=== PATIENT | female | born 1945 | race Caucasian/White ===

== ENCOUNTER → 2018-06-14 11:57 | Outpatient (CLI) | payer MEDICARE, OTHER, SELFPAY ==
--- NOTE | 2018-06-14 | DI.CT.S_ITS ---
PROCEDURE: CT ABDOMEN PELVIS W CON INDICATIONS: ABDOMINAL PAIN TECHNIQUE: After the administration of oral and intravenous contrast, 5 mm thick sections acquired from the diaphragms to the symphysis. 5 mm thick coronal and sagittal reformats were performed. For radiation dose reduction, the following was used: automated exposure control, adjustment of mA and/or kV according to patient size. COMPARISON: None. FINDINGS: Image quality: Excellent. ABDOMEN: Lung bases: Lung bases are clear. Heart size is normal, considering the situs inversus totalis, with the ventricular apex directed anterolaterally towards the right. Solid organs: Liver is normal in size and enhancement and demonstrate situs inversus totalis. Gallbladder is not seen and the patient did report prior cholecystectomy and appendectomy. Note is made of several simple hepatic cysts and no biliary distention. Biliary system is non-dilated. Pancreas enhances normally. Spleen is normal in size and enhancement. No adrenal nodules. Kidneys are normal in size and enhancement, without hydronephrosis, but there is extrarenal pelvis morphology at the kidneys bilaterally, left somewhat more prominent than that on the right. Peritoneum and bowel: Stomach, small bowel, and colon loops are normal in caliber and wall thickness. No free fluid or air. Nodes and vessels: No retroperitoneal or mesenteric adenopathy. Aorta and inferior vena cava are normal in caliber. Miscellaneous: No ventral hernias. PELVIS: Genitourinary: Bladder wall thickness is normal. The uterus can be seen to be somewhat lobulated and to contain moderate uterine fibroids, several of which contain dystrophic calcifications. Miscellaneous: No inguinal hernias or adenopathy. Bones: No suspicious bony lesions. No vertebral body compression fractures. IMPRESSION: 1. A definite source of acute abdominal pain is not seen. 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 2. Scattered hepatic cysts present, no biliary distention seen. The patient reported prior cholecystectomy, and the gallbladder is not found. No metallic surgical clips are seen at the gallbladder fossa. 3. The uterus is somewhat lobulated in its contour, and contains what appears to be multiple small and moderate sized uterine fibroids several of which contain dystrophic calcifications. No acute disease over the pelvis is found. Dictated by: Rashaad Ruiz M.D. on 06/14/2018 at 16:09 Approved by: Rashaad Ruiz M.D. on 06/14/2018 at 16:13
== END ==
PROVIDERS: Visit Provider Family Medicine
DX: R10.9 Unspecified abdominal pain (principal); D25.9 Leiomyoma of uterus, unspecified; K76.89 Other specified diseases of liver; Z90.49 Acquired absence of other specified parts of digestive tract
CPT/HCPCS: 74177; Q9967

== ENCOUNTER → 2018-08-12 11:55 | Outpatient (CLI) | payer MEDICARE, OTHER, SELFPAY ==
--- NOTE | 2018-08-12 11:59 | DI.RAD.S_ITS ---
PROCEDURE: XR ANKLE RT MIN 3V INDICATIONS: 72 y/o F w/ worsening BL R ankle pain 2/2 injury 10-days ago TECHNIQUE: 3 views of the ankle were acquired. COMPARISON: None. FINDINGS: Bones: Acute oblique fracture involving distal fibular shaft is seen. No significant displacement. No other fracture or dislocation. Ankle mortise is normally aligned. No suspicious bony lesions. Small plantar calcaneal enthesophyte is seen. Soft tissues: No tibiotalar joint effusion. Achilles tendon appears normal. Soft tissue swelling over lateral malleolus is noted. IMPRESSION: Acute nondisplaced oblique fracture involving distal fibular shaft. Dictated by: Ammon Ruiz M.D. on 08/12/2018 at 12:17 Approved by: Ammon Ruiz M.D. on 08/12/2018 at 12:19
--- NOTE | 2018-08-12 11:59 | DI.RAD.S_ITS ---
PROCEDURE: XR TIBIA FUBULA RT 2V INDICATIONS: 72 y/o F w/ worsening BL R ankle pain 2/2 injury 10-days ago TECHNIQUE: 2 views of the tibia and fibula were acquired. COMPARISON: None. FINDINGS: Bones: Nondisplaced fracture involving distal fibular shaft is noted better seen on ankle radiograph. No proximal to mid fibular shaft fracture. No dislocation. No suspicious bony lesions. Soft tissues: No suspicious soft tissue calcifications or masses. IMPRESSION: Nondisplaced distal fibular shaft fracture. No proximal to mid tibial or fibular shaft fracture. Dictated by: Ammon Ruiz M.D. on 08/12/2018 at 12:19 Approved by: Ammon Ruiz M.D. on 08/12/2018 at 12:19
== END ==
PROVIDERS: Visit Provider Physician Assistant
DX: S82.434A Nondisplaced oblique fracture of shaft of right fibula, initial encounter for closed fracture (principal); M25.571 Pain in right ankle and joints of right foot
CPT/HCPCS: 73590; 73610

== ENCOUNTER → 2020-01-10 08:58 | Outpatient (CLI) | payer MEDICARE, OTHER, SELFPAY ==
[2020-01-10 09:28] LABS: Alanine Aminotransferase 20 IU/L (<35); Albumin 4.1 g/dL (3.5-5.0); Albumin Globulin Ratio 1.4 (1.0-2.8); Alkaline Phosphatase 63 U/L (38-126); Aspartate Aminotransferase 29 IU/L (14-36); BUN Creatinine Ratio 30.2 (6-22); Bilirubin Total 0.5 mg/dL (0.2-1.3); Blood Urea Nitrogen 26 mg/dL (7-17); Carbon Dioxide 29 mmol/L (22-32); Chloride 106 mmol/L (98-107); Estimated Glomerular Filt Rate > 60.0 mL/min (>60); Glucose 83 mg/dL (80-110); HEMOLYSIS < 15 (0-50); Sodium 141 mmol/L (137-145); Total Protein 7.1 g/dL (6.3-8.2)
--- NOTE | 2020-01-10 09:34 | DI.CT.S_ITS ---
PROCEDURE: CT ABDOMEN PELVIS W CON INDICATIONS: Diverticulitis of intestine, Lower abdominal pain. Sinus inversus TECHNIQUE: After the administration of oral and intravenous contrast, 5 mm thick sections acquired from the diaphragms to the symphysis. 5 mm thick coronal and sagittal reformats were performed. For radiation dose reduction, the following was used: automated exposure control, adjustment of mA and/or kV according to patient size. COMPARISON: [facility], CT, CT ABDOMEN PELVIS W CON, 06/14/2018, 13:15. FINDINGS: Image quality: Excellent. ABDOMEN: Lung bases: Lung bases are clear. Heart size is normal. 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 Solid organs: Liver is normal in size. Numerous hepatic cysts are again seen, unchanged in size and appearance from previous study. Gallbladder is not visualized. Biliary system is non-dilated. Pancreas enhances normally. Spleen is normal in size and enhancement. No adrenal nodules. Kidneys are normal in size and enhancement, without hydronephrosis. Left extrarenal pelvis is seen. Visualized bilateral ureters are within normal limits. Peritoneum and bowel: Stomach, small bowel, and colon loops are normal in caliber and wall thickness. No free fluid or air. Mild colonic diverticulosis is seen, no CT evidence of acute diverticulitis. No evidence of acute appendicitis. Nodes and vessels: No retroperitoneal or mesenteric adenopathy. Aorta and inferior vena cava are normal in caliber. Miscellaneous: No ventral hernias. PELVIS: Genitourinary: Bladder wall thickness is normal. Miscellaneous: Small bilateral inguinal hernias are seen containing fat only. No inguinal lymphadenopathy. Bulky appearing uterus with multiple calcified uterine fibroids are again seen, unchanged from prior study. No gross abnormality is seen in bilateral adnexa. Bones: No suspicious bony lesions. No vertebral body compression fractures. IMPRESSION: 1. No acute inflammatory process within abdomen or pelvis. No free fluid or free air. Mild colonic diverticulosis with no CT evidence of acute diverticulitis. 2. 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 3. Numerous hepatic cysts, unchanged from prior study. Prior cholecystectomy. 4. Bulky appearing uterus with multiple calcified uterine fibroids. Dictated by: Ammon Ruiz M.D. on 01/10/2020 at 10:31 Approved by: Ammon Ruiz M.D. on 01/10/2020 at 13:33
== END ==
PROVIDERS: Referring Provider Family Medicine; Visit Provider Family Medicine
DX: K57.92 Diverticulitis of intestine, part unspecified, without perforation or abscess without bleeding (principal); Q89.3 Situs inversus; R10.30 Lower abdominal pain, unspecified; K76.89 Other specified diseases of liver; D25.9 Leiomyoma of uterus, unspecified
CPT/HCPCS: 36415; 74177; 80053; Q9967

== ENCOUNTER 2020-11-11 23:10 | Emergency (ER) | payer MEDICARE, OTHER, SELFPAY ==
[2020-11-11 23:20] VITALS: BP 196/87; PULSE 68; RESP 20; TEMP 36.6; O2SAT 100; BMI 29.4
[2020-11-11 23:31] VITALS: PULSE 57; O2SAT 100
--- NOTE | 2020-11-11 23:40 | DI.RAD.S_ITS ---
PROCEDURE: XR CHEST 1V INDICATIONS: chest pain TECHNIQUE: One view of the chest was acquired. COMPARISON: None. FINDINGS: Surgical changes and devices: None. Lungs and pleura: Lungs are clear. No pleural effusions or pneumothorax. Mediastinum: Mediastinal contours appear normal. Heart size is normal. Right-sided heart is noted. Bones and chest wall: No suspicious bony lesions. Overlying soft tissues appear unremarkable. IMPRESSION: 1. No acute cardiopulmonary disease process. 2. Situs inversus. Dictated by: Brooke Velásquez MD, PhD on 11/12/2020 at 8:32 Approved by: Brooke Velásquez MD, PhD on 11/12/2020 at 8:34
[2020-11-12] VITALS (8 sets, daily range): BP systolic 174; BP diastolic 74; PULSE 49–60; RESP 15–38; O2SAT 98–100
[2020-11-12 00:05] LABS: Add Manual Diff / Slide Review NO; Basophils Absolute Auto 100 /uL (0-100); Eosinophils Absolute Auto 0 /uL (0-450); Eosinophils Percent Auto 0.3 % (2-4); Hematocrit 41.6 % (36-46); Hemoglobin 13.8 g/dL (12.0-16.0); Lymphocytes Absolute Auto 1300 /uL (1100-4500); Lymphocytes Percent Auto 20.3 % (25-40); Mean Corpuscular HGB Conc 33.3 % (30-36); Mean Corpuscular Hemoglobin 30.8 PG (26-34); Mean Corpuscular Volume 92.6 fL (80-100); Monocytes Absolute Auto 400 /uL (0-900); Monocytes Percent Auto 6.7 % (3-14); Neutrophils Absolute Auto 4500 /uL (1500-7000); Neutrophils Percent Auto 71.7 % (50-75); Platelet Count 175 X10^3/uL (150-400); Red Blood Cell Count 4.49 X10^6/uL (4.0-5.2); Red Cell Distribution Width 13.7 % (11.6-14.8); White Blood Cell Count 6.3 X10^3/uL (4.5-11.0)
--- NOTE | 2020-11-12 00:06 | ED.GENADULT ---
HPI - General Adult General Chief complaint: Syncope Stated complaint: Passed out earlier. Sent by [employer] EMT Time Seen by Provider: 11/11/20 23:30 Source: patient Mode of arrival: Ambulatory Limitations: no limitations History of Present Illness HPI narrative: Patient is a 74-year-old female who arrived to the emergency department for evaluation of an event that occurred earlier this evening. States she was over at a friend's house. She states she had been standing for a little over 1 hour when she suddenly became very lightheaded. She was not having chest pain or shortness of breath or headaches at the time. Did not feel like her heart was beating faster being slow. She became very flushed. She states that she did have to sit down on the ground. She had no loss of consciousness. Unsure as to how long the symptoms lasted but she did start to feel better after she sat down. She was able to drink some water. Had a little bit nausea with this. Her came to pick her up. She went home. She was able to walk around. She felt much better but was not back 100% to her normal state health. She was able to eat some food. Because things were not improving she decided to come to the emergency department for evaluation. In route here to the emergency department she did have an episode where she was having some chest discomfort. States that it lasted approximately 30 minutes and then completely resolved. She initially thought this was just anxiety related to the situation. Related Data Home Medications Medication Instructions Recorded Confirmed enalapril maleate PO 08/12/18 08/12/18 simvastatin PO 08/12/18 08/12/18 Allergies Allergy/AdvReac Type Severity Reaction Status Date / Time No Known Allergies Allergy Uncoded 11/08/17 12:49 Review of Systems Constitutional Constitutional: Denies fatigue, Denies fever(s) and Denies headache(s) Eyes Eyes: Denies change in vision ENT Ears, Nose, Mouth, and Throat: Denies vertigo, Reports dizziness, Denies headache(s), Reports disequilibrium and Denies sore throat Cardiovascular Cardiovascular: Reports chest pain, Denies syncope, Denies irregular heart rhythm, Reports lightheadedness and Denies dyspnea Respiratory Respiratory: Denies cough and Denies dyspnea Gastrointestinal Gastrointestinal: Denies abdominal pain, Reports diarrhea, Reports nausea and Denies vomiting Genitourinary Genitourinary: Denies dysuria Genitourinary: Denies dysuria Musculoskeletal Musculoskeletal: Denies arthralgias, Denies myalgias and Reports tingling Integumentary/Breasts Skin/Breast: Denies lesions and Denies rash Neurologic Neurologic: Denies abnormal speech, Denies behavioral changes, Denies confusion, Denies vertigo, Reports dizziness, Denies syncope, Denies headache(s), Denies localized weakness, Denies memory loss, Reports tingling and Reports disequilibrium Psychiatric Psychiatric: Denies behavioral changes, Denies confusion and Denies memory loss Endocrine Endocrine: Denies fatigue Hematologic/Lymphatic On Anticoagulants: No Allergic/Immunologic Allergic/Immunologic: Denies urticaria Patient History Medical History (Updated 11/12/20 @ 06:51 by Syed Sharp DO) High cholesterol Hypertension Situs inversus totalis Social History Smoking Status: Former smoker Smoking Status: Former smoker alcohol intake frequency: holidays/special occasions only Substance Use Type: does not use Exam Initial Vital Signs Initial Vital Signs: Vital Signs Temperature 97.9 F 11/11/20 23:20 Pulse Rate 68 11/11/20 23:20 Respiratory Rate 20 11/11/20 23:20 Blood Pressure 196/87 H 11/11/20 23:20 Pulse Oximetry 100 11/11/20 23:20 Const General: cooperative, healthy appearing, comfortable, well developed and well groomed Limitations: mental status not altered [facility] Head: normal to inspection and normocephalic Eyes General: appearance normal, both eyes and all related structures Resp Effort & Inspection: normal respiratory effort Auscultation: clear to auscultation bilaterally Cardio Rate: bradycardic Rhythm: regular rhythm Pulses: radial pulses present GI Inspection: non-distended Palpation: soft, No firm and No tender Skin Lesions: no lesions Rashes: no rashes Neuro General: patient alert, patient awake and patient oriented x3 Cognition: normal cognition Speech: speech normal Gait: normal gait Extrem General: normal to inspection, capillary refill normal and No edema Psych Appearance: grossly normal and well kempt Scores [employer]ier coma scale eye opening: Spontaneous Navin coma scale verbal response: Orientated Navin coma scale motor response: Obey commands Soldier coma scale total score: 15 HEART Score Heart Score history: Slightly Suspicious Heart Score EKG: Non-Specific repolarization disturbance Heart Score Age: > or = 65 years old Heart Score risk factors: 1-2 risk factors Heart Score troponin: < or = to normal limit Heart Score Total: 4 Course Orders Ordered: ED Orders 11/11/20 23:29 EKG-12 Lead Stat 11/11/20 23:40 XR chest 1V Stat 11/11/20 23:44 Complete Blood Count AUTO DIFF Stat Comprehensive Metabolic Panel Stat Lipase Stat Troponin & CK Cardiac Panel Stat 11/12/20 01:50 Troponin & CK Cardiac Panel Stat Discontinued Medications Sodium Chloride (Normal Saline 0.9%) 1,000 mls @ 1,000 mls/hr IV BOLUS ONE Stop: 11/12/20 00:29 Last Infusion: 11/12/20 02:46 Dose: 0 mls/hr Documented by: Admin: 11/12/20 00:23 Dose: 1,000 mls/hr Documented by: ISHAN Vital Signs Vital signs: Vital Signs - 8 hr 11/11/20 23:20 11/11/20 23:31 11/12/20 00:00 Temperature 97.9 F Pulse Rate 68 57 L 51 L Respiratory Rate 20 29 H Blood Pressure 196/87 H Pulse Oximetry 100 100 99 11/12/20 00:30 11/12/20 01:00 11/12/20 01:30 Temperature Pulse Rate 50 L 49 L 60 Respiratory Rate 25 H 15 34 H Blood Pressure Pulse Oximetry 99 98 99 11/12/20 02:00 11/12/20 02:30 11/12/20 02:51 Temperature Pulse Rate 53 L 56 L 58 L Respiratory Rate 25 H 35 H 38 H Blood Pressure 174/74 H Pulse Oximetry 100 99 11/12/20 02:55 Temperature Pulse Rate 56 L Respiratory Rate 20 Blood Pressure 174/74 H Pulse Oximetry 99 Medical Decision Making Medical Records Medical records reviewed: Yes I reviewed the patient's medical records. Lab Data Lab results reviewed: Yes I reviewed the patient's lab results. Result diagrams: 11/11/20 23:44 11/11/20 23:44 Labs: Lab Results 11/11/20 11/11/20 11/12/20 Range/Units 23:44 23:44 01:50 WBC 6.3 (4.5-11.0) X10^3/uL RBC 4.49 (4.0-5.2) X10^6/uL Hgb 13.8 (12.0-16.0) g/dL Hct 41.6 (36-46) % MCV 92.6 (80-100) fL MCH 30.8 (26-34) PG MCHC 33.3 (30-36) % RDW 13.7 (11.6-14.8) % Plt Count 175 (150-400) X10^3/uL Neut % (Auto) 71.7 (50-75) % Lymph % (Auto) 20.3 L (25-40) % Bucks % (Auto) 6.7 (3-14) % Eos % (Auto) 0.3 L (2-4) % Baso % (Auto) 1.0 (0-2) % Neut # (Auto) 4500 (1667-9611) /uL Lymph # (Auto) 1300 (6305-1191) /uL Bucks # (Auto) 400 (0-900) /uL Eos # (Auto) 0 (0-450) /uL Baso # (Auto) 100 (0-100) /uL Sodium 141 (137-145) mmol/L Potassium 4.3 (3.4-5.1) mmol/L Chloride 106 (98-107) mmol/L Carbon Dioxide 29 (22-32) mmol/L BUN 22 H (7-17) mg/dL Creatinine 0.86 (0.52-1.04) mg/dL Estimated GFR > 60.0 (>60) mL/min BUN/Creatinine Ratio 25.6 H (6-22) Glucose 111 H (80-110) mg/dL Calcium 10.0 (8.4-10.2) mg/dL Total Bilirubin 0.3 (0.2-1.3) mg/dL AST 33 (14-36) IU/L ALT 22 (<35) IU/L Alkaline Phosphatase 76 (38-126) U/L Total Creatine Kinase 81 75 (30-135) U/L CK-MB (CK-2) TNP TNP CK-MB (CK-2) Rel Index TNP TNP Troponin I < 0.012 < 0.012 (0.01-0.034) ng/mL Total Protein 7.0 (6.3-8.2) g/dL Albumin 4.2 (3.5-5.0) g/dL Globulin 2.8 (1.7-4.1) g/dL Albumin/Globulin Ratio 1.5 (1.0-2.8) Lipase 214 (23-300) U/L Imaging Data Chest x-ray: Radiologist's Impression: No acute findings ECG Data Attestation: I personally reviewed and interpreted this ECG as follows: Prior ECG tracings: available for review Interpretation: Sinus bradycardia Ventricular rate of 54 First-degree AV block peer interval 226 milliseconds LVH Inverted T-waves in lead 1 to aVL AVF V1 V3 V4 V5 V6 Comparison EKG dated 15 November 2018 Has very similar parents to today's EKG however today's has inverted T-waves in 1 in lead to and aVL MDM Narrative Medical decision making narrative: Here in the emergency department patient is asymptomatic. She has a normal neurologic exam. Low suspicion for CVA/TIA given her history and physical exam. Her electrolytes are unremarkable. Her pre syncope that she experienced earlier today did not sound like a seizure activity. She was not having any chest pain or shortness of breath or palpitations at that time. We did discuss the possibility of an arrhythmia however her EKG here shows no signs of arrhythmia and she is a unremarkable QTC. We discussed other etiology to include dehydration and also vasovagal which I suspect was the cause of her symptoms. The 2nd issue that brought her in was this 30 minutes of chest discomfort and route here to the emergency department. The patient thought that it was related to the anxiety/stress of the event. I was able to obtain records from a cardiology visit that she had approximately 1 year ago. Last year she had 2 separate stress test both of which I was able to see the results of and they were all recorded as unremarkable. She was told by the cloth layer after the 2nd stress test that she needed no further workup of her heart. Her troponins today are negative x2. Patient does have Situs inversus. Her EKG does have diffuse T-wave inversions however it does appear very similar to prior EKGs except for the 1 today does have inversions in 1 to in aVL which appear to be new. I had a long discussion with her regarding her symptoms. We did discuss her risks for having coronary artery disease. We did discuss her to prior stress test and that these were reassuring however they were almost 1 year ago. We did discuss the new findings of her EKG today. Discussed the risks and benefits of being admitted to the hospital verses following up as an outpatient. After this discussion with her at bedside the decision was made for her to stay for 2nd troponin and then be discharged home and follow-up with her primary doctor. She was given return precautions stated that if she had any return of the symptoms that she need to return to the emergency department. She expressed understanding and agreement. Discharge Plan Departure Patient Disposition: Home Clinical Impression: Pre-syncope, Atypical chest pain Instructions: Fainting, DI for Atypical Chest Pain Activity Restrictions/Additional Instructions: Continue all of your medications as directed. I highly recommend you contact your primary provider for a follow-up to discuss further workup to include a stress test. Return to the emergency department for any new or worsening symptoms Prescriptions: No Action simvastatin PO RF: 0 enalapril maleate PO RF: 0
[2020-11-12] MEDS: SODIUM CHLORIDE 0.9% 1,000 ML 1000 ML IV (00:23)
[2020-11-12 00:28] LABS: Alanine Aminotransferase 22 IU/L (<35); Albumin 4.2 g/dL (3.5-5.0); Albumin Globulin Ratio 1.5 (1.0-2.8); Alkaline Phosphatase 76 U/L (38-126); Aspartate Aminotransferase 33 IU/L (14-36); BUN Creatinine Ratio 25.6 (6-22); Bilirubin Total 0.3 mg/dL (0.2-1.3); Blood Urea Nitrogen 22 mg/dL (7-17); Carbon Dioxide 29 mmol/L (22-32); Chloride 106 mmol/L (98-107); Creatine Kinase 81 U/L (30-135); Estimated Glomerular Filt Rate > 60.0 mL/min (>60); Globulin 2.8 g/dL (1.7-4.1); Glucose 111 mg/dL (80-110); HEMOLYSIS < 15 (0-50); Lipase 214 U/L (23-300); Potassium 4.3 mmol/L (3.4-5.1); Sodium 141 mmol/L (137-145)
[2020-11-12 00:39] LABS: Troponin I < 0.012 ng/mL (0.01-0.034)
[2020-11-12 02:13] LABS: Creatine Kinase 75 U/L (30-135)
[2020-11-12 02:25] LABS: Troponin I < 0.012 ng/mL (0.01-0.034)
== END 2020-11-12 03:10 | disposition home or self-care (01) ==
PROVIDERS: Emergency Provider Emergency Medicine
DX: R55 Syncope and collapse (principal); R07.89 Other chest pain; R00.1 Bradycardia, unspecified
CPT/HCPCS: 36415; 71045; 80053; 82550; 82553; 83690; 84484; 85025; 93005; 93010; 96360; 96361; 99284

== ENCOUNTER → 2022-08-18 10:02 | Outpatient (CLI) | payer MEDICARE, OTHER, SELFPAY ==
[2022-08-18 20:22] LABS: Appearance Urine UA CLEAR; Bilirubin Urine UA NEGATIVE (NEGATIVE); Color Urine UA YELLOW; Glucose Urine UA NEGATIVE (Negative); Ketones Urine UA NEGATIVE (NEGATIVE); Leukocyte Esterase Urine UA TRACE (NEGATIVE); Nitrite Urine UA NEGATIVE (Negative); Occult Blood Urine UA NEGATIVE (Negative); Protein Urine UA NEGATIVE (Negative); Urobilinogen Urine UA 0.2 E.U./dL (0.2)
[2022-08-18 20:42] LABS: pH Urine UA 5.5 (4.5-8.0)
[2022-08-18 20:43] LABS: RBC Urine None Seen (0-5/HPF); WBC Urine 1-5/HPF (0-5/HPF)
[2022-08-18 20:44] LABS: Bacteria Urine Few (2-10); Culture Indicated Urine Specimen Cultured; Mucus Urine 1+ (Negative); Squamous Epithelial Cell Urine 0-1 /HPF (0-5/HPF)
[2022-08-22 16:18] LABS: Fecal Immunochemical Test Negative (Negative)
== END ==
PROVIDERS: PCP Physician Assistant; Visit Provider Physician Assistant
DX: R10.32 Left lower quadrant pain (principal); R10.813 Right lower quadrant abdominal tenderness; R19.5 Other fecal abnormalities; R19.8 Other specified symptoms and signs involving the digestive system and abdomen
CPT/HCPCS: 81001; 82274; 87086

== ENCOUNTER → 2022-08-24 10:28 | Outpatient (CLI) | payer MEDICARE, OTHER, SELFPAY ==
--- NOTE | 2022-08-24 10:32 | DI.CT.S_ITS ---
PROCEDURE: CT ABDOMEN PELVIS W CON INDICATIONS: abdominal pain. History of situs inversus totalis. TECHNIQUE: After the administration of oral and intravenous contrast, axial sections were acquired from the lung bases to the pubic symphysis. Coronal and sagittal reformats were performed. For radiation dose reduction, the following was used: automated exposure control, adjustment of mA and/or kV according to patient size. COMPARISON:[facility], CT, CT ABDOMEN PELVIS W CON, 01/10/2020, 9:53. FINDINGS: Image quality: Adequate. Situs inversus totalis redemonstrated. Lung bases: No pleural effusion. ABDOMEN: Liver: Similar appearance of previously demonstrated hepatic cysts and additional small hypodensities too small to characterize. Gallbladder: Not visualized. Biliary ducts: Unremarkable. Pancreas: Unremarkable. Spleen: Unremarkable. Adrenal Glands: Unremarkable. Kidneys and Ureters: Left extrarenal pelvis. No convincing hydronephrosis. Stomach and Bowel: No bowel obstruction. Moderate predominantly sigmoid colonic diverticulosis without evidence of acute diverticulitis. Peritoneum: No abnormal intraperitoneal fluid. No free air. Abdominal Nodes: No retroperitoneal or mesenteric adenopathy by size criteria. Vessels: Aorta and inferior vena cava are normal in size. PELVIS: Pelvic Organs: Calcified uterine fibroid(s) present as before. The uterus and ovaries are not well evaluated by CT. Bladder: Unremarkable. Pelvic Nodes: No enlarged lymph nodes. Possible small fat containing left inguinal hernia. Bones: Multilevel degenerative change of the visualized spine. IMPRESSION: No acute appearing abnormality identified within the abdomen or pelvis. Dictated by: Rei Hankins M.D. on 08/24/2022 at 14:13 Approved by: Rei Hankins M.D. on 08/24/2022 at 14:30
[2022-08-24 11:21] LABS: Add Manual Diff / Slide Review NO; Basophils Absolute Auto 0 /uL (0-100); Basophils Percent Auto 0.4 % (0-2); Eosinophils Absolute Auto 100 /uL (0-450); Eosinophils Percent Auto 1.4 % (2-4); Hematocrit 41.8 % (36-46); Hemoglobin 14.3 g/dL (12.0-16.0); Lymphocytes Absolute Auto 1500 /uL (1100-4500); Lymphocytes Percent Auto 27.1 % (25-40); Mean Corpuscular HGB Conc 34.1 % (30-36); Mean Corpuscular Hemoglobin 31.2 PG (26-34); Mean Corpuscular Volume 91.4 fL (80-100); Monocytes Absolute Auto 500 /uL (0-900); Monocytes Percent Auto 9.1 % (3-14); Neutrophils Absolute Auto 3300 /uL (1500-7000); Platelet Count 217 X10^3/uL (150-400); Red Blood Cell Count 4.57 X10^6/uL (4.0-5.2); White Blood Cell Count 5.4 X10^3/uL (4.5-11.0)
[2022-08-24 11:41] LABS: Alanine Aminotransferase 25 IU/L (<35); Albumin 4.1 g/dL (3.5-5.0); Albumin Globulin Ratio 1.3 (1.0-2.8); Alkaline Phosphatase 76 U/L (38-126); Aspartate Aminotransferase 33 IU/L (14-36); BUN Creatinine Ratio 32.4 (6-22); Bilirubin Total 0.4 mg/dL (0.2-1.3); Blood Urea Nitrogen 23 mg/dL (7-17); Calcium 9.4 mg/dL (8.4-10.2); Carbon Dioxide 30 mmol/L (22-32); Chloride 104 mmol/L (98-107); Estimated Glomerular Filt Rate > 60 mL/min (>60); Globulin 3.1 g/dL (1.7-4.1); Glucose 80 mg/dL (80-110); HEMOLYSIS 21 (0-50); Potassium 4.4 mmol/L (3.4-5.1); Sodium 141 mmol/L (137-145); Total Protein 7.2 g/dL (6.3-8.2)
[2022-08-24 12:08] LABS: TSH w/ Reflex to FT4 0.06 uIU/mL (0.47-4.68)
[2022-08-24 14:40] LABS: Free T4, Direct Thyroxine 1.15 ng/dL (0.78-2.19)
== END ==
PROVIDERS: PCP Internal Medicine; Referring Provider Physician Assistant; Visit Provider Physician Assistant
DX: R19.8 Other specified symptoms and signs involving the digestive system and abdomen (principal); R10.32 Left lower quadrant pain; R10.813 Right lower quadrant abdominal tenderness; R19.5 Other fecal abnormalities
CPT/HCPCS: 36415; 74177; 80053; 84439; 84443; 85025; Q9967

== ENCOUNTER → 2025-05-21 12:42 | Outpatient (CLI) | payer MEDICARE, OTHER, SELFPAY | PROVIDERS: PCP Internal Medicine; Visit Provider Physician Assistant | DX: R35.0 Frequency of micturition (principal); M54.50 Low back pain, unspecified | CPT/HCPCS: 87086 ==